=== PATIENT | male | born 2000 | race Caucasian/White ===

== ENCOUNTER 2020-11-01 23:32 | Emergency (ER) | payer MEDICAID ==
[~2020-11-01] VITALS: Ht 182.9 cm; Wt 91.6 kg
[2020-11-01 23:32] VITALS: BP 138/82
== END 2020-11-02 04:03 | disposition left against medical advice (07) ==
LOC: ER 23:32
DX: K08.89 Other specified disorders of teeth and supporting structures (principal); Z53.21 Procedure and treatment not carried out due to patient leaving prior to being seen by health care provider